=== PATIENT | male | born 1935 | race Caucasian/White ===

== ENCOUNTER 2016-07-19 22:42 | Observation (INO) | payer OTHER ==
--- NOTE | ~2016-07-19 | HP ---
History And Physical [place] [id number] [place]. [address] NAME: CHECO HERNANDEZ SR : 35 STATUS : ADM Obdulia PAT#: [id number] AGE: 81 ADM/REG DATE : 07/19/16 MR#: [id number] REPORT SERV DATE: 07/20/16 DICTATED BY: SURY PHILIPPE DATE: 07/20/16 REPORT STATUS : Draft TRANSCRIBED BY: MODFatih DATE: 07/20/16 DATE OF ADMISSION: 07/19/2016 CHIEF COMPLAINT: An 81-year-old male, presenting with headache and near syncope. HISTORY OF PRESENT ILLNESS: The patient's history was obtained through careful interview with the patient and coupled with review of [facility] and [facility] medical records. The patient states that for a few weeks now he has been having intermittent weakness in his legs and arms, but is not described as hemiparesis. He also suffers from chronic intermittent dizziness and vertigo, but actually did not suffer any of this on the night of admission. About 12:30 in the evening leading up to admission he was watching television when suddenly he felt as if he might pass out. It was a lightheadedness feeling, but he also felt some salt drifting off to the left side. He had about five of these episodes in the evening prompting him to come to the hospital for further evaluation. Each episode lasted maybe 15 seconds at a time before it subsided. He noticed when he tried to walk at first that he was "unsteady" but now the symptoms seemed to have resolved. He felt lightheaded as mentioned above and he actually thought to himself "lord is my heart stopping ?". He has had no recent headaches and does not generally develop headaches, but tonight leading up to admission he developed an extreme headache mostly in his forehead, a throbbing quality 11/10 severity that lasted over an hour before it subsided spontaneously. He does admit to having increased blurry vision. No double vision. No dysarthria. No dysphagia. He has had recent "memory issues" over the last several months, but now worsened tonight. During this episode his did check his blood pressure and it was "okay". No chest pain. No shortness of breath, other than chronic dyspnea on exertion. No cough. No other illness. He does admit to increasing prostate symptoms with difficult flow of urine and incomplete voiding sensation. REVIEW OF SYSTEMS: Otherwise, a 14-point review of systems was obtained and was negative. PAST MEDICAL HISTORY: 1. Coronary artery disease status post stent placement x3, followed by Dr. Delarosa. History And Physical [address] [place]. [address] NAME: CHECO HERNANDEZ : 35 STATUS : ADM Obdulia PAT#: [id number] AGE: 81 ADM/REG DATE : 07/19/16 MR#: [id number] REPORT SERV DATE: 07/20/16 DICTATED BY: SURY PHILIPPE DATE: 07/20/16 REPORT STATUS : Draft TRANSCRIBED BY: MODFaith DATE: 07/20/16 2. Obstructive sleep apnea, intolerant of CPAP. 3. Elevated cholesterol. 4. Headaches. 5. Diastolic congestive heart failure from echocardiogram in 2013. 6. Granulomatous lung disease. 7. Fatty liver disease. 8. Nephrolithiasis. 9. Benign prostatic hypertrophy. 10.Hepatitis in the 1970s. 11.Peptic ulcer disease. 12.Vertigo. PAST SURGICAL HISTORY: 1. TURP x2. 2. Appendectomy. ALLERGIES: NO KNOWN DRUG ALLERGIES. SOCIAL HISTORY: No tobacco abuse. No alcohol abuse. He is . Chews tobacco. Lives in [place], [place]. Have three children. Retired from running a paving company. He ambulates with a cane. FAMILY HISTORY: Father with cancer. CURRENT MEDICATIONS: 1. Aspirin 81 mg daily. 2. Coreg 6.25 mg p.o. b.i.d. 3. Eye drops. 4. Lozol 2.5 mg on Thursday, Thursday, Thursday. 5. Eye drops, Xyzal 2.5 mg p.o. q.h.s. 6. Potassium 10 mEq p.o. every other day. 7. Effient 10 mg p.o. daily. 8. Pravastatin 10 mg daily. 9. Altace 2.5 mg p.o. daily. PHYSICAL EXAMINATION: VITAL SIGNS: Temperature 98.2, pulse 66, blood pressure 128/70, respiratory rate 20, and O2 saturation 95% on room air. GENERAL: A pleasant, cooperative male. No evidence of acute distress at this time. NEUROLOGICAL: Cranial nerves 2 through 12 are intact and symmetrical. The patient has 5/5 strength in upper and lower extremities that is symmetrical. HEENT: Pupils equal, round, and reactive to light. No conjunctival pallor. No scleral icterus. Nares are patent. Oropharynx is clear of obstruction. Moist mucous membranes. NECK: Trachea midline. No thyromegaly. LYMPH: No cervical, no supraclavicular lymphadenopathy. RESPIRATORY: Clear to auscultation at bases. No wheezes, rales, or rhonchi. Normal History And Physical [address] [place] [facility] [place]. [address] NAME: CHECO HERNANDEZ SR : 35 STATUS : ADM Obdulia PAT#: [id number] AGE: 81 ADM/REG DATE : 07/19/16 MR#: [id number] REPORT SERV DATE: 07/20/16 DICTATED BY: SURY PHILIPPE DATE: 07/20/16 REPORT STATUS : Draft TRANSCRIBED BY: MODL DATE: 07/20/16 respiratory effort. CARDIOVASCULAR: Regular rate and rhythm. No murmurs, rubs, or gallops. No extremity edema is appreciated. ABDOMEN: Soft, nontender, and nondistended. Normal bowel sounds auscultated throughout. No organomegaly. EXTREMITIES: Warm and dry extremities. No pallor. No cyanosis. PSYCHIATRIC: Normal affect. Good mood. Alert and oriented x3. LABORATORY DATA: White blood cell count 10.1, hemoglobin 16, hematocrit 47, and platelets 199. Sodium 141, potassium 4.6, chloride 103, bicarb 29, BUN 14, creatinine 1.0, and glucose 101. Troponin negative. INR 1.0. STUDIES: 1. Chest x-ray by my own evaluation shows no acute cardiopulmonary process, stable compared to August 2013. 2. EKG by my own evaluation shows sinus rhythm, inferior Q-waves. 3. CT scan of the brain without contrast shows no acute intracranial process. There was a suggestion of normal pressure hydrocephalus ? ASSESSMENT AND PLAN: 1. Transient ischemic attack. Check an echocardiogram. Check telemetry. Check MRI of the brain. Check MRA of the neck and brain. Noted the patient has a new onset 11/10 headache, we would like to rule out aneurysm. Check carotids on MRA. Obtain Neurology consult. 2. Benign prostatic hypertrophy. Check urinalysis. [facility]/MODL Sury Philippe M.D. / [id number] CC: Aren Yuan Jr, MD Steven Stubblefield, M.D., F.A.C.C. Merlin Alcala M.D.
--- NOTE | ~2016-07-19 | DS ---
Discharge Summary [facility] [address] [place]. [address] NAME: CHECO HERNANDEZ SR : 35 STATUS : DIS Obdulia PAT#: [id number] AGE: 81 ADM/REG DATE : 07/19/16 MR#: [id number] REPORT SERV DATE: 07/21/16 DICTATED BY: GREG MARK DATE: 07/21/16 REPORT STATUS : Draft TRANSCRIBED BY: RILEY DATE: 07/21/16 ADMISSION DATE: 07/19/2016 DISCHARGE DATE: 07/21/2016 DIAGNOSES: 1. Transient ischemic attack. 2. Hyperlipidemia. 3. Hypertension. 4. Coronary artery disease. 5. Chronic dizziness. 6. 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 FOLLOWUP: The patient should follow up with Neurology in two to three weeks for workup of possible NPH. The patient should follow up with his primary care physician in one to two weeks. DISCHARGE MEDICATIONS: Aspirin 81 mg p.o. daily; Coreg 6.25 mg p.o. b.i.d.; Restasis ophthalmic b.i.d.; indapamide 2.5 mg p.o. Thursday, Thursday, Thursday, hold for systolic pressures less than 130; latanoprost 0.005% in both eyes q.h.s.; Xyzal 2.5 mg p.o. q.h.s.; Effient 10 mg p.o. daily; Pravachol increased to 40 mg p.o. q.h.s.; potassium chloride 10 mEq p.o. q.48 hours p.r.n. only when taking indapamide. CONSULTANTS: Neurology, Dr. Fraga. IMAGIN. CT of the brain without contrast showing no acute CVA or other acute intracranial pathology. Stable pattern of diffuse ventriculomegaly, ventricles enlarged somewhat out of proportion to the enlargement of the overlying sulci, which may represent a stable pattern of marked central volume loss associated with diffuse cerebral involutional changes versus less likely stable communicating hydrocephalus or normal- pressure hydrocephalus. Read by Dr. Morgan. 2. MRI/MRA of the brain and neck showing atrophy. Chronic microvascular white matter ischemic changes. No evidence of acute abnormality. A negative MRA exam of the [place] of [place] region. 3. Echocardiogram, ejection fraction of 55%. Mild diastolic function. Aortic valve sclerosis without stenosis. No clear evidence of apical thrombus. HOSPITAL COURSE: Please see H and P dictated by Dr. Yoan Putnam. An 81 years old male with a past medical history of hypertension and hyperlipidemia, who presented with a chief complaint of near syncopal episode. The patient states that he has been having intermittent headaches and intermittent dizziness with associated possible vertigo. The patient stated around 12:30 in the evening, he was watching television and felt as if he were about to pass out, felt lightheaded, and had several episodes. He attempted to ambulate and felt unsteady. The patient was admitted to the Hospitalist Service for TIA. With workup, the patient was ruled out for CVA. Also, Neurology was consulted. The patient's cholesterol panel required increasing of his Pravachol, which was at a lower dose of 10 mg a day. His Discharge Summary [address] [address] NAME: CHECO HERNANDEZ SR : 35 STATUS : DIS Obdulia PAT#: [id number] AGE: 81 ADM/REG DATE : 07/19/16 MR#: [id number] REPORT SERV DATE: 07/21/16 DICTATED BY: GREG MARK DATE: 07/21/16 REPORT STATUS : Draft TRANSCRIBED BY: RILEY DATE: 07/21/16 triglycerides were not at goal, elevated at 356. However, total cholesterol and LDL were within range at 176 and 67 respectively. He did not have any signs of infection. The patient had improvement of his symptoms during his hospital stay. Also, it was explained to the patient by the neurologist of possible normal-pressure hydrocephalus and to be seen as an outpatient to continue with workup. Also, it was explained to the patient to avoid low blood pressures and the patient is to closely monitor blood pressure. Recommend to hold indapamide if blood pressure is less than 130, which also could be adding to some symptoms of dizziness. During this hospital stay, the patient was off his indapamide and blood pressure ranged 98 to 140 on average systolic. At the time of discharge, blood pressure was 121/72, within normal limits. [facility]/MODL Greg Mark M.D. / [id number] CC: Vanesa Rowan M.D. Steven Stubblefield, M.D., F.A.C.C.
--- NOTE | ~2016-07-19 | CN ---
Consultation Report [facility] [address] [place]. [address] NAME: CHECO HERNANDEZ SR : 35 STATUS : ADM Obdulia PAT#: [id number] AGE: 81 ADM/REG DATE : 07/19/16 MR#: [id number] REPORT SERV DATE: 07/21/16 DICTATED BY: KAROLYN FRAGA DATE: 07/20/16 REPORT STATUS : Draft TRANSCRIBED BY: MODL DATE: 07/20/16 NEUROLOGICAL EVALUATION DATE OF CONSULTATION: 07/20/2016 REQUESTING PHYSICIAN: Dr. Aren Yuan. REASON FOR EVALUATION: Persistent recurrent dizziness, difficulty walking, intermittent weakness involving lower and upper extremities. REVIEW OF SYSTEMS: In addition, during the review of systems, the patient admitted to having some memory issues in the last several months and also admitted to having difficulty controlling his bladder where he feels he has to go to the bathroom very frequently. The patient denied prior history of CVA or TIA. Denied chest pain or shortness of breath, although he has had some difficulty on exertion. The patient denied history of head trauma, history of seizures. Denied recent travel out of this area. Denied weight loss or poor appetite. Has had increasing daytime fatigue and somnolence. The rest of 14 point of review of system was negative. PAST MEDICAL HISTORY: Significant history of past cardiac stents x3. The patient has been followed by Dr. Delarosa. The patient did not admit to having been tested to obstructive sleep apnea; however, it appears from his records that his documented obstructive sleep apnea is intolerant of CPAP. Has history of congestive heart failure, which appears to be diastolic noted on echocardiogram in 2013. Granulomatous lung disease, fatty liver disease, history of renal stones, hepatitis in the 1970s, peptic ulcer, and chronic vertigo. PAST SURGICAL HISTORY: Includes appendectomy and TURP. ALLERGIES: NO KNOWN ALLERGIES. SOCIAL HISTORY: The patient stated that he had never smoked or drunk alcohol; however he chews tobacco intermittently. The patient has three children. 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 The patient is . FAMILY HISTORY: The patient's mother at 98. The patient's father of cancer at an earlier age. There is history of hypertension in some of the siblings. MEDICATIONS: Prior to admission included Altace 2.5 mg daily; Lozol 2.5 mg three times a week; Coreg 6.25 mg p.o. b.i.d.; aspirin 81 mg p.o. daily; eye drops, Xyzal 2.5 mg at bedtime; Effient 10 mg p.o. daily; pravastatin 10 mg p.o. daily; and potassium 10 mEq daily. PHYSICAL EXAMINATION: Consultation Report [address] [place]. [address] NAME: CHECO HERNANDEZ : 35 STATUS : ADM Obdulia PAT#: [id number] AGE: 81 ADM/REG DATE : 07/19/16 MR#: [id number] REPORT SERV DATE: 07/21/16 DICTATED BY: KAROLYN FRAGA DATE: 07/20/16 REPORT STATUS : Draft TRANSCRIBED BY: RILEY DATE: 07/20/16 GENERAL: The patient appeared pleasant and cooperative, in no acute distress. VITAL SIGNS: Blood pressure 121/72, pulse was 77, respirations 10, temperature was 98.4. HEAD AND NECK: Examination showed him to be normocephalic. There was no evidence of trauma. Auscultation of the neck showed no evidence of bruits. No JVD or thyromegaly noted. ENT: Exam showed small airway, Mallampati class 3-4. Tongue was midline. No atrophy or fibrillations were noted. The rest of head and neck examination showed no evidence of significant abnormalities. Neck was supple. There was no Kernig or Brudzinski. Cervical range of motion was not impaired. CHEST: Symmetrical. LUNGS: Clear to auscultation. HEART: Regular S1, S2. No S3, S4 gallops were noted. ABDOMEN: Obese, soft, nontender. No organomegaly. Bowel sounds were present. EXTREMITIES: Showed trace edema in distal legs. Peripheral pulses were normal throughout. SKIN: Clear. No ecchymosis, petechiae, hemorrhages, or pigmentation noted. NEUROLOGIC: Mental status exam: The patient was alert, oriented to self, time, and place. His speech was fluent. There was no evidence of aphasia or dysarthria. Thought content and mood were appropriate. Distant and recent memory appeared intact. The patient, however, had some difficulty with remembering names, which he stated has been getting worse recently. Cranial nerve examination: 2 through 12: Visual reyna on confrontation were intact. Funduscopic exam showed no evidence of papilledema, hemorrhages, exudates. Pupils were at 3 mm, reacted to light and accommodation. Extraocular movements were full. There was no limitation of upward or downward gaze. Facial sensation, muscles of mastication, and muscles of facial expression showed no evidence of asymmetry or weakness. Lower cranial nerves were intact. Tongue was midline. No atrophy or fibrillation was noted. Palate elevated symmetrically. Sternocleidomastoid and trapezius muscles were normal. Motor exam: Muscle, bulk, and tone were normal. Strength was 5/5 throughout. Deep tender reflexes were 1+/2 in the upper extremities, trace/2 at left knee, absent ankle jerks, and decreased left knee reflex. Sensory exam showed no evidence of significant deficits to vibration, pinprick, light touch; and cerebellar exam of [id number], [id number] showed no evidence of deficit of asymmetry. The patient's gait, the patient stated that intermittently his gait feels as if his legs were concrete and stuck to the ground. He uses the cane. His gait has been, in the past few days, intermittently unsteady. LABORATORY STUDIES: Sodium 142, potassium 3.5, chloride 105, BUN 14, creatinine 0.89, GFR 93, BUN 14, creatinine 0.89. Magnesium 2. Calcium 8.9. WBC count 9.3, hemoglobin 16, hematocrit 47.0, platelets 187,000. BNP 6.1. TSH 2.87. CT scan of the head on admission showed no acute findings, "stable pattern of diffuse ventriculomegaly, ventricles were somewhat enlarged, somewhat out of proportion to the cortical atrophy." MRI of the brain showed no evidence of acute strokes. Showed hydrocephalus with enlarged ventricles, chronic microvascular changes. Consultation Report [place] [id number] [facility] [place]. [address] NAME: CHECO HERNANDEZ : 35 STATUS : ADM Obdulia PAT#: [id number] AGE: 81 ADM/REG DATE : 07/19/16 MR#: [id number] REPORT SERV DATE: 07/21/16 DICTATED BY: KAROLYN FRAGA DATE: 07/20/16 REPORT STATUS : Draft TRANSCRIBED BY: MODL DATE: 03/19/17 MRA of the neck and brain was unremarkable. IMPRESSION: 1. Intermittent and worsening symptoms of dizziness, gait abnormality, urinary incontinence, and some issues related to memory. Suggest presence of underlying, possible normal-pressure hydrocephalus. The patient's MRI does not show any evidence of acute strokes. MRA of the neck and brain shows no evidence of significant occlusive disease. Although the patient does have increased risk of strokes, none of them are noted on the present MRI, some chronic microvascular changes noted. 2. History of hypertension, hypercholesteremia, obesity, obstructive sleep apnea - noncompliant with continuous positive airway pressure; all constituted increased risk of a stroke. Would recommend referral for normal-pressure hydrocephalus workup and possible neurosurgical intervention with shunt placement. Recommend to repeat polysomnography study with continuous positive airway pressure titration study to accommodate the patient with more comfortable continuous positive airway pressure device to improve compliance. The patient has signs of right-sided diastolic dysfunction, to which uncorrected obstructive sleep apnea contributes. 3. Obesity should be addressed with nutritional counseling and increase physical activity once the patient is able to tolerate it. Recommend to obtain serum vitamin B12 and folate level, vitamin D levels. Serum lipid panel was not obtained on admission. 4. The patient has increased risk of falling and injury. I would recommend not to drive, operating moving machinery, climbing heights or ladders. 5. History of coronary artery disease. Recommend to follow up with Cardiology on an outpatient basis. Continue aspirin and statin and avoid precipitous drops of blood pressure. Improve compliance. Thank you for allowing us to participate in this patient's care. RAMYA/RILEY Karolyn Fraga MD / [id number]
[2016-07-19 22:34] LABS: BASOPHILS 0.4 %; BASOPHILS ABSOLUTE 0.04 10/3/uL (0.0-0.16); EOSINOPHILS 3.2 %; EOSINOPHILS ABSOLUTE 0.32 10/3/uL (0.0-0.53); HEMATOCRIT 47.4 % (40.0-51.0); HEMOGLOBIN 16.4 g/dL (13.6-17.8); IMMATURE GRANULOCYTES 0.5 %; IMMATURE GRANULOCYTES ABSOLUTE 0.05 10/3/uL (0.0-0.11); LYMPHOCYTES 31.3 %; LYMPHOCYTES ABSOLUTE 3.15 10/3/uL (0.67-4.30); MEAN CORPUS HGB CONC 34.6 g/dL (32.0-36.0); MEAN CORPUSCULAR HEMOGLOB 32.7 pg (26.0-34.0); MEAN CORPUSCULAR VOLUME 94.4 fL (80-100); MEAN PLATELET VOLUME 10.5 fL (9.2-13.0); MONOCYTES 10.3 %; MONOCYTES ABSOLUTE 1.04 10/3/uL (0.21-1.20); NEUTROPHILS 54.3 %; NEUTROPHILS ABSOLUTE 5.48 10/3/uL (2.02-8.40); PLATELET COUNT 199 10/3/uL (150-400); RED CELL COUNT 5.02 10/6/uL (4.7-6.1); WHITE BLOOD CELLS 10.1 10/3/uL (4.5-10.5)
[~2016-07-19 22:42] MED LIST: ALEVE220 MG PO; ALTA2.5 PO; ASAB PO; COREG6 PO; EFFIENT10 PO; FLOMAX4 PO; K-TABS10 MEQ PO; KLOR-CON M1010 MEQ PO; KLOR-CON PO; LIPITOR10 PO; LOZOLTAB PO; MCZ125 PO; RAMIPRIL PO; RESTASIS OPH; UNABLE TO RECALL; XALAT OPH
[2016-07-19 22:52] LABS: PARTIAL THROMBO TIME 26.8 SEC (22.5-37.2); PROTIME (NOT ORD) 13.1 SEC (12.0-14.5)
[2016-07-19 22:53] LABS: BUN (BLOOD UREA NITROGEN) 14 MG/DL (6-23); CALCIUM, SERUM 9.2 MG/DL (8.5-10.4); CHEST PAIN PROFILE TAT 0 Hrs 23 Mins; CHLORIDE, SERUM 103 MMOL/L (96-112); CO2 (CARBON DIOXIDE) 29 MMOL/L (24-34); GFR AFRICAN AMERICAN 81 ML/MIN (>=60); GFR NON AFRICAN AMERICAN 70 ML/MIN (>=60); GLUCOSE, SERUM 101 MG/DL (60-99); POTASSIUM, SERUM 4.6 MMOL/L (3.5-5.3); SODIUM, SERUM 141 MMOL/L (135-148); TROPONIN I <0.02 NG/ML (<0.05)
[2016-07-20] MEDS ORDERED: PRAVACHOL40 MG (01:35)
[2016-07-20] MEDS ORDERED: ALTA2.5 PO (01:37)
[2016-07-20] MEDS ORDERED: XYZAL5 MG PO (01:39)
[2016-07-20 05:08] LABS: BASOPHILS 0.3 %; BASOPHILS ABSOLUTE 0.03 10/3/uL (0.0-0.16); EOSINOPHILS 3.8 %; EOSINOPHILS ABSOLUTE 0.35 10/3/uL (0.0-0.53); IMMATURE GRANULOCYTES 0.5 %; IMMATURE GRANULOCYTES ABSOLUTE 0.05 10/3/uL (0.0-0.11); LYMPHOCYTES 33.2 %; LYMPHOCYTES ABSOLUTE 3.09 10/3/uL (0.67-4.30); MEAN CORPUSCULAR HEMOGLOB 32.3 pg (26.0-34.0); MEAN CORPUSCULAR VOLUME 94.8 fL (80-100); MEAN PLATELET VOLUME 10.7 fL (9.2-13.0); MONOCYTES 10.6 %; MONOCYTES ABSOLUTE 0.99 10/3/uL (0.21-1.20); NEUTROPHILS 51.6 %; PLATELET COUNT 187 10/3/uL (150-400); RBC DISTRIBUTION WIDTH 13.2 % (12.0-16.0); RED CELL COUNT 4.96 10/6/uL (4.7-6.1); WHITE BLOOD CELLS 9.3 10/3/uL (4.5-10.5)
[2016-07-20 05:15] LABS: MANUAL DIFF NO %
[2016-07-20 05:22] LABS: A/G RATIO 0.8 (0.7-1.9); ALBUMIN 2.9 G/DL (3.5-5.0); ALKALINE PHOSPHATASE 81 U/L (45-117); B NATRIURETIC PEPTIDE (BNP) 6.1 PG/ML (< 100.0); BUN (BLOOD UREA NITROGEN) 14 MG/DL (6-23); CALCIUM, SERUM 8.9 MG/DL (8.5-10.4); CHLORIDE, SERUM 105 MMOL/L (96-112); CHOLESTEROL 176 MG/DL (< 200); CO2 (CARBON DIOXIDE) 26 MMOL/L (24-34); CPK (IF ELEVATED MB BANDS) 70 U/L (0-200); CREATININE 0.89 MG/DL (0.70-1.30); GFR AFRICAN AMERICAN 93 ML/MIN (>=60); GFR NON AFRICAN AMERICAN 80 ML/MIN (>=60); GLOBULIN 3.7 G/DL (2.5-4.1); SGPT(ALT) 27 U/L (5-65); SODIUM, SERUM 142 MMOL/L (135-148); TOTAL BILIRUBIN 0.5 MG/DL (0-1.2); TOTAL PROTEIN 6.6 G/DL (6.0-8.5); TROPONIN I <0.02 NG/ML (<0.05)
[2016-07-20 05:24] LABS: CHOL/HDL RATIO(NOT ORDER) 4.6 (0-5); GLUCOSE, SERUM 123 MG/DL (60-99); HDL CHOLESTEROL 38 MG/DL (> 39); LDL CHOLESTEROL 67 MG/DL (< 130); NON-HDL CHOLESTEROL 138 MG/DL (< 160); POTASSIUM, SERUM 3.5 MMOL/L (3.5-5.3); TRIGLYCERIDE 356 MG/DL (< 150)
[2016-07-20 05:25] LABS: SGOT(AST) 16 U/L (5-40)
[2016-07-20 05:26] LABS: PARTIAL THROMBO TIME 27.5 SEC (22.5-37.2); PROTIME (NOT ORD) 13.2 SEC (12.0-14.5)
[2016-07-20 07:00] LABS: GLYCOHEMOGLOBIN (HbA1c) 5.7 % (4.7-6.1)
[2016-07-20 07:44] LABS: SED RATE 10 MM/HR (0-15)
[2016-07-20 09:49] LABS: ASCORBIC ACID (UR NOT ORDER) NEG (NEG); BILIRUBIN, URINE NEGATIVE (NEG); KETONE, URINE NEGATIVE (NEG); LEUKOCYTE ESTERASE(NOT OR NEG (NEG); WBC (NOT ORDERED) (RFLEX) 1 (0-5)
[2016-07-21 18:05] LABS: FOLATE 11.5 NG/ML (>5.2)
== END 2016-07-21 18:15 | disposition home or self-care (01) ==
LOC: ER 22:42 → CDU1 23:59 → CDU2 07-20 01:35
PROVIDERS: Emergency Medicine; Internal Medicine; Nurse Practitioner
DX: G45.9 Transient cerebral ischemic attack, unspecified (principal); E78.5 Hyperlipidemia, unspecified; I25.10 Atherosclerotic heart disease of native coronary artery without angina pectoris; G47.33 Obstructive sleep apnea (adult) (pediatric); E78.00 Pure hypercholesterolemia, unspecified; I50.30 Unspecified diastolic (congestive) heart failure; I11.0 Hypertensive heart disease with heart failure; Z87.442 Personal history of urinary calculi; Z90.49 Acquired absence of other specified parts of digestive tract; Z98.890 Other specified postprocedural states; Z79.82 Long term (current) use of aspirin; Z79.899 Other long term (current) drug therapy; N40.0 Benign prostatic hyperplasia without lower urinary tract symptoms
CPT/HCPCS: 70450; 70544; 70547; 70551; 71010; 80048; 80053; 80061; 81001; 82306; 82550; 82607; 82746; 83036; 83735; 83880; 84443; 84484; 85025; 85610; 85652; 85730; 93005; 94640; 96372; 99291; A9270-GY; C8929; G0378; Q9957